=== PATIENT | female | born 1950 | race Caucasian/White ===

== ENCOUNTER 2017-06-19 14:48 | Outpatient (CLI) | payer MEDICARE ==
--- NOTE | 2017-06-19 17:01 | MMO ---
BILATERAL SCREENING MAMMOGRAMS: DATE: 06/19/2017 COMPARISON: Prior exams of 2014 and 2015. This patient's mammogram was interpreted with the assistance of computer-aided detection. FINDINGS: Scattered fibroglandular densities. Scattered benign-appearing calcifications. No evidence of inter theodore change. IMPRESSION: BI-RADS 2: Benign findings. Recommend one year follow-up. POS: FILI
== END 2017-06-19 14:49 | disposition home or self-care (01) ==
LOC: SCSMAMMO 14:48
PROVIDERS: ATTEND Family Medicine
DX: Z12.31 Encounter for screening mammogram for malignant neoplasm of breast (principal)
CPT/HCPCS: 77067; G0202

== ENCOUNTER 2018-07-26 14:28 | Outpatient (CLI) | payer MEDICARE ==
--- NOTE | 2018-07-26 15:44 | BD ---
BONE DENSITOMETRY USING DEXA: HISTORY: Post menopausal screening for osteoporosis. FINDINGS LUMBAR SPINE BMD (g/cm2) T-SCORE Z-SCORE L1: 0.737 -2.3 -0.5 L2: 1.030 0.0 2.0 L3: 1.089 0.0 2.1 L4: 0.834 -2.1 0.1 TOTAL: 0.928 -1.1 0.9 BMD (g/cm2) T-SCORE Z-SCORE NECK: 0.531 -2.9 -1.2 TOTAL: 0.836 -0.9 0.5 There has been interval improvement of 6.9% in the BMD of the lumbar spine and an improvement of 13.5 % in the BMD of the proximal femur since 05/30/2013. IMPRESSION: Osteoporosis. POS: C
== END 2018-07-26 14:29 | disposition home or self-care (01) ==
LOC: BICMAMMO 14:28
PROVIDERS: ATTEND Student in an Organized Health Care Education/Training Program
DX: Z12.31 Encounter for screening mammogram for malignant neoplasm of breast (principal); Z13.820 Encounter for screening for osteoporosis; M81.0 Age-related osteoporosis without current pathological fracture
CPT/HCPCS: 77063; 77067; 77080

== ENCOUNTER 2019-09-01 10:42 | Outpatient (CLI) | payer MEDICARE ==
--- NOTE | 2019-09-01 11:52 | ULT ---
US Abdominal: 09/01/2019 12:00 AM CLINICAL HISTORY: Nausea. STUDY: Complete abdominal ultrasound COMPARISON: None. FINDINGS: Liver: Size: Normal. Echogenicity: Normal. Contour: Smooth. Mass: None. Common bile duct: 3 mm Gallbladder: Thickened wall with area of increased echogenicity in the wall measuring 6 mm in size. T his does not demonstrate shadowing. This demonstrates a comet tail artifact. Pancreas: Head, body, and tail appear normal. Inferior vena cava: Normal in caliber Aorta: Normal in caliber Spleen: No focal lesions. Spleen measuring 7.5 cm in length. Right kidney: No pelvicalyceal dilatation. Right kidney measuring 9.8 cm in length. Left kidney: No pelvicalyceal dilatation. Left kidney measuring 9.4 cm in length. IMPRESSION: Cholesterolosis of the gallbladder wall.
== END 2019-09-01 10:43 | disposition home or self-care (01) ==
LOC: SCSULT 10:42
PROVIDERS: ATTEND Internal Medicine
DX: R11.0 Nausea (principal); K82.4 Cholesterolosis of gallbladder
CPT/HCPCS: 93975

== ENCOUNTER 2022-08-02 08:26 | Outpatient (CLI) | payer MEDICARE ==
[2022-08-02] MEDS ORDERED: Iopamidol 370 76% 100 ML VIAL ONE (08:42)
== END 2022-08-02 08:27 | disposition home or self-care (01) ==
LOC: BICCT 08:26
PROVIDERS: ATTEND Family Medicine
DX: R91.1 Solitary pulmonary nodule (principal); J84.10 Pulmonary fibrosis, unspecified
CPT/HCPCS: 71260; Q9967

== ENCOUNTER 2024-06-04 07:28 | Outpatient (CLI) | payer MEDICARE | END 2024-06-04 07:29 | disposition home or self-care (01) | LOC: ULT 07:28 | PROVIDERS: ATTEND Family Medicine | DX: R10.11 Right upper quadrant pain (principal); K82.9 Disease of gallbladder, unspecified | CPT/HCPCS: 76700 ==